=== PATIENT | female | born 1950 | race Caucasian/White ===

== ENCOUNTER 2018-06-20 12:54 | Outpatient (CLI) | payer MEDICARE ==
--- NOTE | 2018-06-20 15:18 | BD ---
DEXA BONE DENSITOMETRY: (Dual energy X-ray Absorptiometry) DATE: 06/20/18 HISTORY: 68-year-old postmenopausal white female for follow-up, age-related osteoporosis screening examination . Height: 65 Weight: 182 lbs Age of menopause: 48 years COMPARISON: 05/04/2016. TECHNIQUE: Because of metallic hardware in the lower lumbar spine, only L2 level was evaluated in the lumbar spi ne, and the bilateral hips were evaluated. As previously, the L1 data does not appear in the results summary, only the L2 data. FINDINGS: The bone mineral density (BMD) is given in grams per square centimeter (g/cm2): LUMBAR SPINE: BMD(g/cm2) T-score Z-score L2: 1.292 2.4 4.5 Total: 1.292 2.4 4.5 Change in BMD compared to previous DEXA: +4.2% HIPS: RIGHT: Femoral neck: 0.720 -1.2 0.6 Total: 1.040 0.8 2.3 Change in BMD compared to previous DEXA: +13.3% LEFT: Femoral neck: 0.724 -1.1 0.7 Total: 0.999 0.5 2.0 Change in BMD compared to previous DEXA: +10.5% FRAX WHO Fracture Risk Assessment Tool: 10 Year Fracture Risk * Major osteoporotic fracture: 14% Hip fracture: 2.5- 2.7% Reported Risk Factors: [place](), Neck BMD=0.720, BMI=30.3, previous fracture, and smoking * Fracture probability is calculated for an untreated patient. Fracture probability may be lower if the patient has received treatment. IMPRESSION: 1. The mean bone mineral density of the lumbar spine is normal. Fracture risk is not increased. 2. The bone mineral density of the femoral neck is osteopenic. Fracture risk is increased. JN R POS: TPC
== END 2018-06-20 12:55 | disposition home or self-care (01) ==
LOC: BICMAMMO 12:54
PROVIDERS: ATTEND Family Medicine
DX: Z12.31 Encounter for screening mammogram for malignant neoplasm of breast (principal); Z00.00 Encounter for general adult medical examination without abnormal findings; Z78.0 Asymptomatic menopausal state; M85.852 Other specified disorders of bone density and structure, left thigh; M85.851 Other specified disorders of bone density and structure, right thigh
CPT/HCPCS: 77063; 77067; 77080

== ENCOUNTER 2020-04-30 12:47 | Outpatient (CLI) | payer MEDICARE ==
--- NOTE | 2020-04-30 13:14 | MMO ---
Bilateral MAMMO Bilat Screen [facility]. CLINICAL HISTORY: Patient is 70 years old and is seen for screening. The patient has no family history of breast cancer. The patient has no personal history of cancer. VIEWS: The views performed were: bilateral craniocaudal with tomosynthesis and bilateral mediolateral oblique with tomosynthesis. FILMS COMPARED: The present examination has been compared to a prior imaging study performed at [facility] on 06/20/2018. This study has been interpreted with the assistance of computer-aided detection. MAMMOGRAM FINDINGS: There are scattered fibroglandular densities. There are stable benign appearing calcifications seen in both breasts. There are no suspicious masses, suspicious calcifications, or new areas of architectural distortion. IMPRESSION: THERE IS NO MAMMOGRAPHIC EVIDENCE OF MALIGNANCY. A ROUTINE FOLLOW-UP MAMMOGRAM IN 1 YEAR IS RECOMMENDED. THE RESULTS OF THIS EXAM WERE SENT TO THE PATIENT. ACR BI-RADS Category 2 - Benign finding MAMMOGRAPHY NOTE: 1. A negative mammogram report should not delay a biopsy if a dominant of clinically suspicious mass is present. 2. Approximately 10% to 15% of breast cancers are not detected by mammography. 3. Adenosis and dense breasts may obscure an underlying neoplasm. Reported by: MURPHY VALENCIA MD Electonically Signed: [id number]
== END 2020-04-30 12:48 | disposition home or self-care (01) ==
LOC: BICMAMMO 12:47
PROVIDERS: ATTEND Family Medicine
DX: Z12.31 Encounter for screening mammogram for malignant neoplasm of breast (principal)
CPT/HCPCS: 77063; 77067

== ENCOUNTER 2023-05-07 03:03 | Inpatient (IN) | payer MEDICARE ==
[2023-05-07] MEDS ORDERED: Ondansetron ODT 4 MG TAB PO PRN (03:59)
[2023-05-07] MEDS ORDERED: Acetaminophen 325 MG TAB PO PRN ×2 (03:59→04:15)
[2023-05-07] MEDS ORDERED: Ondansetron PF 4 MG/2 ML Vial IVP PRN ×2 (03:59→04:15)
[2023-05-07] MEDS ORDERED: Fentanyl 100 MCG/2 ML VIAL SLOW IVP PRN (04:05)
[2023-05-07] MEDS ORDERED: Ondansetron ODT 4 MG TAB SL PRN (04:15)
[2023-05-07] MEDS ORDERED: Sodium Chloride 0.9% 1,000 ML IV SCH (04:15)
[2023-05-07 04:33] LABS: #Monocytes 1.1 thou/uL (0.11-0.59); #Neutrophils 10.4 thou/uL (1.40-6.50); %Basophils 0.3 % (0.0-1.0); %Eosinophils 0.2 % (0.0-10.0); %Lymphocytes 12.2 % (21.0-51.0); %Monocytes 8.2 % (0.0-10.0); %Neutrophils 78.6 % (42.0-75.0); Hematocrit 37.9 % (36.0-47.0); Hemoglobin 12.9 g/dL (12.0-16.0); Mean Corpuscular Hemoglobin 32.4 pg (27.0-31.0); Mean Corpuscular Volume 95.2 fl (78.0-98.0); Mean Platelet Volume 9.5 fL (7.4-10.4); Platelet Count 227 10x3/uL (130-400); RBC Distribution Width 12.4 % (11.5-14.5); Red Blood Cell (RBC) Count 3.98 mill/uL (4.20-5.40); White Blood Cell (WBC) Count 13.2 10x3/uL (4.8-10.8)
[2023-05-07 04:54] VITALS: BMI 31.4
[2023-05-07 05:03] LABS: Anion Gap 13 mmol/L (10-20); BUN (Urea Nitrogen) 13 mg/dL (9.8-20.1); Calc. Creatinine Clearance 66 mL/min (70-130); Calcium 8.6 mg/dL (7.8-10.44); Carbon Dioxide 24 mmol/L (23-31); Chloride 106 mmol/L (98-107); Estimated GFR 62; Glucose 108 mg/dL (83-110); Potassium 3.9 mmol/L (3.5-5.1); Sodium 139 mmol/L (136-145)
[2023-05-07] MEDS ORDERED: FLU VACC QS2023(65UP)/MF59C/PF 60 MCG/0.5 ML SYRINGE IM ONE (09:00)
[2023-05-07] MEDS: Famotidine 20 MG TAB PO SCH (09:33)
[2023-05-07] MEDS: metroNIDAZOLE 500 MG in Premix 1 BAG IVPB SCH ×2 (09:33→18:08)
[2023-05-07] MEDS: Famotidine/PF 20 mg/2ml Vial SLOW IVP SCH (10:51)
[2023-05-07] MEDS ORDERED: metroNIDAZOLE 500 MG in Premix 1 BAG IVPB SCH (11:00)
[2023-05-07] MEDS ORDERED: Ciprofloxacin Lactate/D5W 400 MG in Premix 1 BAG IVPB SCH (12:00)
[2023-05-07] MEDS: Ciprofloxacin Lactate/D5W 400 MG in Premix 1 BAG IVPB SCH (13:22)
[2023-05-07 20:49] VITALS: TEMP 98.4
[2023-05-08] MEDS: Ciprofloxacin Lactate/D5W 400 MG in Premix 1 BAG IVPB SCH (00:49)
[2023-05-08] MEDS: metroNIDAZOLE 500 MG in Premix 1 BAG IVPB SCH ×2 (00:49→08:34)
[2023-05-08 07:26] VITALS: BP 122/77
[2023-05-08] MEDS: Famotidine 20 MG TAB PO SCH (08:35)
[2023-05-08] MEDS: Famotidine/PF 20 mg/2ml Vial SLOW IVP SCH (09:34)
== END 2023-05-08 11:03 | disposition home or self-care (01) | DRG 392 ==
LOC: T4-B 03:51 → OBSVTOIN 09:08
PROVIDERS: ADMIT Student in an Organized Health Care Education/Training Program; ATTEND Internal Medicine
DX: K57.32 Diverticulitis of large intestine without perforation or abscess without bleeding (principal); E66.9 Obesity, unspecified; Z88.5 Allergy status to narcotic agent; Z88.8 Allergy status to other drugs, medicaments and biological substances; Z98.890 Other specified postprocedural states; Z90.710 Acquired absence of both cervix and uterus; Z90.49 Acquired absence of other specified parts of digestive tract; Z68.31 Body mass index [BMI] 31.0-31.9, adult
CPT/HCPCS: 36415; 80048; 85025; 90471; 90694; G0008; G0378; J0744; J2405; J7050

== ENCOUNTER 2024-05-06 13:46 | Emergency (ER) | payer MEDICARE, OTHER ==
[2024-05-06 14:35] LABS: #Basophils 0.07 10x3/uL (0.0-0.2); %Basophils 0.9 % (0.0-1.0); %Eosinophils 0.4 % (0.0-10.0); %Lymphocytes 23.1 % (21.0-51.0); %Monocytes 6.4 % (0.0-10.0); %Neutrophils 68.9 % (42.0-75.0); Hematocrit 44.1 % (36.0-47.0); Hemoglobin 15.2 g/dL (12.0-16.0); Mean Corpuscular HGB CONC 34.5 g/dL (32.0-36.0); Mean Corpuscular Hemoglobin 32.3 pg (27.0-31.0); Mean Corpuscular Volume 93.6 fL (78.0-98.0); Platelet Count 276 10x3/uL (130-400); RBC Distribution Width 11.7 % (11.5-14.5); Red Blood Cell (RBC) Count 4.71 mill/uL (4.20-5.40)
[2024-05-06 14:52] LABS: ALT (SGPT) 31 U/L (8-55); AST (SGOT) 23 U/L (5-34); Albumin 3.8 g/dL (3.4-4.8); Alkaline Phosphatase 88 U/L (40-110); Anion Gap 14 mmol/L (10-20); BUN (Urea Nitrogen) 11 mg/dL (9.8-20.1); Bilirubin, Total 0.7 mg/dL (0.2-1.2); Calc. Creatinine Clearance 0 mL/min (70-130); Calcium 9.3 mg/dL (7.8-10.44); Carbon Dioxide 22 mmol/L (23-31); Chloride 107 mmol/L (98-107); Estimated GFR 53; Globulin 3.1 g/dL (2.4-3.5); Glucose 111 mg/dL (83-110); Lipase 25 U/L (8-78); Potassium 3.6 mmol/L (3.5-5.1); Protein, Total 6.9 g/dL (5.8-8.1); Sodium 139 mmol/L (136-145)
[2024-05-06 14:55] LABS: Troponin I Less than 0.010 ng/mL (< 0.028)
[2024-05-06 16:20] LABS: Bacteria/HPF None Seen HPF (None Seen); Bilirubin Negative (Negative); Blood, Urine Negative (Negative); CAUTI Indications for Culture Acute Hematuria; Clarity Clear (Clear); Glucose, Urine (Dipstick) Normal (Negative); Ketone, Urine Negative (Negative); Leukocyte Negative Leu/uL (Negative); Nitrite Negative (Negative); Protein, Urine (Dipstick) Negative (Neg-Trace); RBC/HPF 0-3 HPF (0-3); Specific Gravity, Urine 1.006 (1.002-1.036); Squamous Epithelial 0-3 HPF (0-3); Urobilinogen Normal mg/dL (Less than 2); WBC/HPF 0-3 HPF (0-3); pH, Urine 5.5 (5.0-9.0)
[2024-05-06 16:23] LABS: Urine Culture Reflex No No
== END 2024-05-06 16:59 | disposition home or self-care (01) ==
LOC: ERS 13:46
DX: R10.13 Epigastric pain (principal); Z55.0 Illiteracy and low-level literacy
CPT/HCPCS: 71045; 74176; 80053; 81001; 83690; 84484; 85025; 93005; 94760